=== PATIENT | female | born 1970 | race Caucasian/White ===

== ENCOUNTER 2017-08-28 18:43 | Inpatient (IN) | payer OTHER ==
[2017-08-28 23:52] LABS: ABNORMAL IP MESSAGE 1; HEMATOCRIT 21.4 % (37.0-47.0); MEAN CORPUSCULAR HGB CONC 25.7 g/dl (32.0-37.0); MEAN CORPUSCULAR VOLUME 62.4 fl (82.0-101.0); PLATELET COUNT 297 10^3/UL (140-415); RED BLOOD COUNT 3.43 10^6/ul (4.20-5.40); RED CELL DISTRIBUTION WIDTH 20.1 % (11.5-14.5)
[2017-08-28 23:52] LABS: WHITE BLOOD COUNT 10.7 10^3/ul (4.8-10.8)
[2017-08-28 23:58] LABS: ANION GAP 15 (8-16); BLOOD UREA NITROGEN 13 mg/dl (7-20); CALCIUM 8.3 mg/dl (8.4-10.2); CARBON DIOXIDE 24 mmol/L (21-31); CHLORIDE 107 mmol/L (97-110); CREATININE 0.59 mg/dl (0.44-1.00); GLUCOSE 176 mg/dl (70-220); POTASSIUM 4.5 mmol/L (3.5-5.1); SODIUM 141 mmol/L (135-144)
[2017-08-28 23:59] LABS: HEMOGLOBIN 5.5 g/dl (12.0-16.0); POSITIVE DIFF @See below
[2017-08-29] LABS: ADD MAN DIFF? YES
[2017-08-29 00:16] LABS: ADD UMIC YES; UR AMORPHOUS CRYSTAL FEW /HPF (NONE SEEN); UR ASCORBIC ACID NEGATIVE (NEGATIVE); UR BACTERIA FEW /HPF (NONE SEEN); UR BILIRUBIN (Dip) NEGATIVE (NEGATIVE); UR BLOOD (Dip) NEGATIVE (NEGATIVE); UR CLARITY TURBID (CLEAR); UR COLOR YELLOW (YELLOW); UR GLUCOSE (Dip) NEGATIVE (NEGATIVE); UR KETONES (Dip) NEGATIVE (NEGATIVE); UR LEUKOCYTE ESTERASE (Dip) 3+ Leu/ul (NEGATIVE); UR MUCUS FEW /HPF (NONE SEEN); UR NITRITE (Dip) POSITIVE (NEGATIVE); UR RBC 10 /HPF (0-5); UR SQUAMOUS EPITHELIAL CELL MODERATE /HPF (FEW); UR TOTAL PROTEIN (Dip) NEGATIVE (NEGATIVE); UR UROBILINOGEN (Dip) NEGATIVE (NEGATIVE); UR WBC 14 /HPF (0-5)
[2017-08-29 01:08] LABS: ANISOCYTOSIS 3+ (0-0); EOSINOPHILS % (M) 2 % (0-7); GIANT THROMBO% (M) 2 % (0-0); HYPOCHROMASIA 3+ (0-0); LYMPHOCYTES #M 2.5 10^3/ul (0.8-2.9); LYMPHOCYTES % (M) 24 % (15-51); MICROCYTOSIS 3+ (0-0); MONOCYTE #M 0.5 10^3/ul (0.3-0.9); MONOCYTES % (M) 5 % (0-11); PLATELET ESTIMATE NORMAL; POIKILOCYTOSIS 1+ (0-0); POLYCHROMASIA 3+ (0-0); SEGMENTED NEUTROPHILS (M) % 69 % (39-77)
[2017-08-29] MEDS: SOD CHLORIDE 0.9% 250 ML IV (01:09)
[2017-08-29] MEDS: CEFTRIAXONE 1 GM/50 ML (PMX) 50 ML IVPB ×2 (01:46→22:52)
[2017-08-29] MEDS ORDERED: ACETAMINOPHEN 325 MG TAB PO (04:00)
[2017-08-29] MEDS ORDERED: ONDANSETRON 4 MG INJ IV (04:00)
[2017-08-29] MEDS ORDERED: DOCUSATE SODIUM 100 MG CAP PO (04:00)
[2017-08-29] MEDS ORDERED: NACL 0.9% 3 ML SYG IV (04:00)
[2017-08-29] MEDS ORDERED: BISACODYL (EC) 5 MG TAB PO (04:00)
[2017-08-29 04:45] LABS: IRON 12 ug/dl (35-150)
[2017-08-29 04:54] LABS: % IRON SATURATION 3 % SAT (22-52); TOTAL IRON BINDING CAPACITY 477 ug/dl (241-421)
[2017-08-29] MEDS: morphine 2 MG INJ IV ×3 (05:03→23:51)
[2017-08-29 06:03] LABS: IMMEDIATE SPIN CROSSMATCH 1 2
[2017-08-29 07:07] LABS: INR 1.01; PARTIAL THROMBOPLASTIN TIME 25.8 Sec (25.0-35.0); PROTIME 13.4 Sec (11.9-14.9)
[2017-08-29] MEDS: PHENAZOPYRIDINE 200 MG TAB PO ×3 (10:27→22:19)
[2017-08-29 13:24] LABS: ADD MAN DIFF? NO
[2017-08-29 13:28] LABS: WHITE BLOOD COUNT 8.3 10^3/ul (4.8-10.8)
[2017-08-29 13:28] LABS: ABNORMAL IP MESSAGE 1; BASOPHILS % 0.4 % (0.0-2.0); EOSINOPHILS # 0.1 10^3/ul (0.0-0.5); EOSINOPHILS % 1.4 % (0.0-7.0); HEMATOCRIT 24.5 % (37.0-47.0); LYMPHOCYTES # 1.4 10^3/ul (0.8-2.9); LYMPHOCYTES % 16.8 % (15.0-51.0); MEAN CORPUSCULAR HEMOGLOBIN 17.9 pg (29.0-33.0); MEAN CORPUSCULAR HGB CONC 27.3 g/dl (32.0-37.0); MEAN CORPUSCULAR VOLUME 65.5 fl (82.0-101.0); MEAN PLATELET VOLUME 11.1 fl (7.4-10.4); MONOCYTE # 0.6 10^3/ul (0.3-0.9); MONOCYTES % 6.8 % (0.0-11.0); NEUTROPHIL # 6.2 10^3/ul (1.6-7.5); NEUTROPHILS % 74.4 % (39.0-77.0); NUCLEATED RED BLOOD CELLS% 0.2 /100WBC (0.0-0.0); PLATELET COUNT 274 10^3/UL (140-415); RED BLOOD COUNT 3.74 10^6/ul (4.20-5.40); RED CELL DISTRIBUTION WIDTH 23.4 % (11.5-14.5)
[2017-08-29 13:31] LABS: POSITIVE DIFF @See below
[2017-08-29 13:34] LABS: HEMOGLOBIN 6.7 g/dl (12.0-16.0)
[2017-08-29 13:46] LABS: ALANINE AMINOTRANSFERASE 75 IU/L (13-69); ALBUMIN 3.4 g/dl (3.3-4.9); ALBUMIN/GLOBULIN RATIO 1.09; ALKALINE PHOSPHATASE 127 IU/L (42-121); ANION GAP 14 (8-16); ASPARTATE AMINO TRANSFERASE 176 IU/L (15-46); BILIRUBIN,INDIRECT 0.8 mg/dl (0-1.1); BILIRUBIN,TOTAL 0.8 mg/dl (0.2-1.3); BLOOD UREA NITROGEN 9 mg/dl (7-20); CALCIUM 8.2 mg/dl (8.4-10.2); CARBON DIOXIDE 25 mmol/L (21-31); CHLORIDE 105 mmol/L (97-110); CHOL/HDL RATIO 2.1 RATIO; CHOLESTEROL 129 mg/dl (100-200); CREATININE 0.52 mg/dl (0.44-1.00); GLUCOSE 140 mg/dl (70-220); HDL CHOLESTEROL 61 mg/dl (37-92); LDL CHOLESTEROL,CALCULATED 53 mg/dl; MAGNESIUM 1.9 mg/dl (1.7-2.5); SODIUM 140 mmol/L (135-144); TOTAL PROTEIN 6.5 g/dl (6.1-8.1); TRIGLYCERIDES 73 mg/dl (0-149)
[2017-08-29 14:12] LABS: HEMOGLOBIN A1C 5.3 % (0-5.9)
[2017-08-29] MEDS ORDERED: HYDROCODONE/APAP (5/325) TAB PO (17:00)
[2017-08-29] MEDS: SOD CHLORIDE 0.9% 250 ML IV* (17:20)
[2017-08-29 17:21] LABS: RETICULOCYTE COUNT % 0.8 % (0.5-1.5)
[2017-08-29 17:23] LABS: RETICULOCYTE RBC 3.82
[2017-08-29] MEDS: [UNRECOGNIZED DRUG - OTHER] XX (18:00)
[2017-08-29] MEDS: DEXTROAMPHETAMINE SULFATE 30 MG XX (18:00)
[2017-08-29 19:39] LABS: ADD MAN DIFF? NO
[2017-08-29 19:41] LABS: WHITE BLOOD COUNT 10.1 10^3/ul (4.8-10.8)
[2017-08-29 19:41] LABS: ABNORMAL IP MESSAGE 1; BASOPHIL # 0.1 10^3/ul (0.0-0.1); BASOPHILS % 0.6 % (0.0-2.0); EOSINOPHILS # 0.2 10^3/ul (0.0-0.5); EOSINOPHILS % 2.4 % (0.0-7.0); HEMATOCRIT 27.5 % (37.0-47.0); HEMOGLOBIN 7.7 g/dl (12.0-16.0); LYMPHOCYTES # 1.6 10^3/ul (0.8-2.9); MEAN CORPUSCULAR HEMOGLOBIN 18.5 pg (29.0-33.0); MEAN CORPUSCULAR VOLUME 65.9 fl (82.0-101.0); MEAN PLATELET VOLUME 10.9 fl (7.4-10.4); MONOCYTE # 0.7 10^3/ul (0.3-0.9); MONOCYTES % 6.9 % (0.0-11.0); NEUTROPHIL # 7.4 10^3/ul (1.6-7.5); NEUTROPHILS % 73.7 % (39.0-77.0); PLATELET COUNT 267 10^3/UL (140-415); RED BLOOD COUNT 4.17 10^6/ul (4.20-5.40); RED CELL DISTRIBUTION WIDTH 23.7 % (11.5-14.5)
[2017-08-29 19:49] LABS: POSITIVE DIFF @See below
[2017-08-29] MEDS: MICONAZOLE 200 MG VAG SUPP VAG (21:00)
[2017-08-29] MEDS: FERROUS SULFATE (EC) 325 MG TAB PO (22:19)
[2017-08-29] MEDS: ZOLPIDEM 5 MG TAB PO (22:51)
[2017-08-29] MEDS ORDERED: VANCOMYCIN IV PER PHARMACY XX (23:00)
[2017-08-29] MEDS: VANCOMYCIN 1.25 GM in SOD CHLORIDE 0.9% 250 ML IVPB (23:40)
[2017-08-30] MEDS: [UNRECOGNIZED DRUG - OTHER] XX ×2 (01:41→10:00)
[2017-08-30] MEDS: DEXTROAMPHETAMINE SULFATE 30 MG XX ×2 (01:41→10:00)
[2017-08-30] MEDS ORDERED: CEFTRIAXONE 1 GM/50 ML (PMX) 50 ML IVPB (02:00)
[2017-08-30 05:17] LABS: ADD MAN DIFF? NO
[2017-08-30 05:20] LABS: ABNORMAL IP MESSAGE 1; BASOPHIL # 0.1 10^3/ul (0.0-0.1); BASOPHILS % 0.5 % (0.0-2.0); EOSINOPHILS # 0.1 10^3/ul (0.0-0.5); EOSINOPHILS % 1.2 % (0.0-7.0); HEMATOCRIT 24.3 % (37.0-47.0); LYMPHOCYTES # 1.1 10^3/ul (0.8-2.9); LYMPHOCYTES % 11.7 % (15.0-51.0); MEAN CORPUSCULAR HEMOGLOBIN 18.1 pg (29.0-33.0); MEAN CORPUSCULAR VOLUME 64.8 fl (82.0-101.0); MEAN PLATELET VOLUME 11.1 fl (7.4-10.4); MONOCYTE # 0.7 10^3/ul (0.3-0.9); MONOCYTES % 7.1 % (0.0-11.0); NEUTROPHIL # 7.5 10^3/ul (1.6-7.5); NUCLEATED RED BLOOD CELLS% 0.2 /100WBC (0.0-0.0); PLATELET COUNT 258 10^3/UL (140-415); RED BLOOD COUNT 3.75 10^6/ul (4.20-5.40); RED CELL DISTRIBUTION WIDTH 23.9 % (11.5-14.5)
[2017-08-30 05:20] LABS: WHITE BLOOD COUNT 9.5 10^3/ul (4.8-10.8)
[2017-08-30 05:27] LABS: HEMOGLOBIN 6.8 g/dl (12.0-16.0); POSITIVE DIFF @See below
[2017-08-30 05:38] LABS: INR 1.04; PROTIME 13.7 Sec (11.9-14.9); PT RATIO 1.1
[2017-08-30 05:39] LABS: PARTIAL THROMBOPLASTIN TIME 25.5 Sec (25.0-35.0)
[2017-08-30 05:56] LABS: ALANINE AMINOTRANSFERASE 143 IU/L (13-69); ALBUMIN 3.3 g/dl (3.3-4.9); ALBUMIN/GLOBULIN RATIO 1.03; ALKALINE PHOSPHATASE 190 IU/L (42-121); ANION GAP 11 (8-16); ASPARTATE AMINO TRANSFERASE 360 IU/L (15-46); BILIRUBIN,INDIRECT 0.2 mg/dl (0-1.1); BILIRUBIN,TOTAL 0.2 mg/dl (0.2-1.3); BLOOD UREA NITROGEN 9 mg/dl (7-20); CALCIUM 8.4 mg/dl (8.4-10.2); CARBON DIOXIDE 26 mmol/L (21-31); CHLORIDE 107 mmol/L (97-110); CREATININE 0.51 mg/dl (0.44-1.00); GLUCOSE 103 mg/dl (70-220); MAGNESIUM 1.9 mg/dl (1.7-2.5); PHOSPHORUS 2.7 mg/dl (2.5-4.9); POTASSIUM 4.2 mmol/L (3.5-5.1); SODIUM 140 mmol/L (135-144); TOTAL PROTEIN 6.5 g/dl (6.1-8.1)
[2017-08-30] MEDS: PHENAZOPYRIDINE 200 MG TAB PO ×2 (09:00→15:14)
[2017-08-30] MEDS: FERROUS SULFATE (EC) 325 MG TAB PO ×2 (09:00→13:00)
[2017-08-30] MEDS ORDERED: DEXTROAMPHETAMINE SULFATE 30 MG PO (09:00)
[2017-08-30] MEDS ORDERED: SOD FERRIC GLUC COMPLX 125 MG in SOD CHLORIDE 0.9% 100 ML IVPB (17:00)
[2017-08-30] MEDS ORDERED: LIDOCAINE 2% JELLY 5 ML TOP (21:00)
[2017-08-30] MEDS ORDERED: LIDOCAINE 2% JELLY 30 ML TOP (21:00)
[2017-09-02 20:41] LABS: VITAMIN B1 (THIAMINE) 114 nmol/L (78-185)
== END 2017-08-30 17:25 | disposition left against medical advice (07) | DRG 812 ==
LOC: E/R 18:43 → MS1 08-29 03:54
PROC: 0DB68ZX Excision of Stomach, Via Natural or Artificial Opening Endoscopic, Diagnostic (ICD-10-PCS; principal; 2017-08-30 12:24)
PROC: 30233N1 Transfusion of Nonautologous Red Blood Cells into Peripheral Vein, Percutaneous Approach (ICD-10-PCS; 2017-08-30 12:24)
DX: D50.9 Iron deficiency anemia, unspecified (principal); N30.01 Acute cystitis with hematuria; K28.9 Gastrojejunal ulcer, unspecified as acute or chronic, without hemorrhage or perforation; K92.1 Melena; Z98.84 Bariatric surgery status; D64.9 Anemia, unspecified; R51 Headache; R20.8 Other disturbances of skin sensation; K13.70 Unspecified lesions of oral mucosa
CPT/HCPCS: 36430; 80048; 80053; 80061; 81001; 82306; 82607; 83036; 83540; 83735; 84100; 84425; 84443; 84590; 85025; 85045; 85610; 85730; 86850; 86870; 86900; 86901; 86902; 86920; 87040; 87086; 88305; 88312; 88313; 96374; 96375; 99285-25

== ENCOUNTER 2017-08-30 20:18 | Inpatient (IN) | payer OTHER ==
[2017-08-31 10:11] LABS: ADD MAN DIFF? NO
[2017-08-31 10:14] LABS: WHITE BLOOD COUNT 8.8 10^3/ul (4.8-10.8)
[2017-08-31 10:14] LABS: ABNORMAL IP MESSAGE 1; BASOPHIL # 0.1 10^3/ul (0.0-0.1); BASOPHILS % 0.6 % (0.0-2.0); EOSINOPHILS # 0.2 10^3/ul (0.0-0.5); EOSINOPHILS % 2.7 % (0.0-7.0); HEMOGLOBIN 8.4 g/dl (12.0-16.0); LYMPHOCYTES # 1.7 10^3/ul (0.8-2.9); LYMPHOCYTES % 19.3 % (15.0-51.0); MEAN CORPUSCULAR HEMOGLOBIN 19.4 pg (29.0-33.0); MEAN CORPUSCULAR VOLUME 66.8 fl (82.0-101.0); MONOCYTE # 0.7 10^3/ul (0.3-0.9); NEUTROPHIL # 6.1 10^3/ul (1.6-7.5); NEUTROPHILS % 68.8 % (39.0-77.0); PLATELET COUNT 269 10^3/UL (140-415); RED BLOOD COUNT 4.34 10^6/ul (4.20-5.40)
[2017-08-31 10:16] LABS: POSITIVE DIFF @See below
[2017-08-31 10:33] LABS: ALANINE AMINOTRANSFERASE 109 IU/L (13-69); ALBUMIN 3.8 g/dl (3.3-4.9); ALBUMIN/GLOBULIN RATIO 1.15; ALKALINE PHOSPHATASE 176 IU/L (42-121); ANION GAP 12 (8-16); ASPARTATE AMINO TRANSFERASE 114 IU/L (15-46); BILIRUBIN,INDIRECT 0.2 mg/dl (0-1.1); BILIRUBIN,TOTAL 0.2 mg/dl (0.2-1.3); BLOOD UREA NITROGEN 13 mg/dl (7-20); CALCIUM 8.6 mg/dl (8.4-10.2); CARBON DIOXIDE 29 mmol/L (21-31); CHLORIDE 107 mmol/L (97-110); CREATININE 0.54 mg/dl (0.44-1.00); GLUCOSE 88 mg/dl (70-220); POTASSIUM 3.9 mmol/L (3.5-5.1); SODIUM 144 mmol/L (135-144); TOTAL PROTEIN 7.1 g/dl (6.1-8.1)
[2017-08-31 10:47] LABS: INR 1.05; PROTIME 13.8 Sec (11.9-14.9); PT RATIO 1.1
[2017-08-31 10:48] LABS: PARTIAL THROMBOPLASTIN TIME 22.7 Sec (25.0-35.0); TROPONIN-I < 0.012 ng/ml (0.00-0.12)
[2017-08-31] MEDS ORDERED: ONDANSETRON 4 MG INJ IV ×2 (12:00→12:30)
[2017-08-31] MEDS ORDERED: ACETAMINOPHEN 325 MG TAB PO (12:00)
[2017-08-31] MEDS ORDERED: MAGNESIUM HYDROXIDE 30ML CUP PO (12:30)
[2017-08-31] MEDS ORDERED: VANCOMYCIN IV PER PHARMACY XX (12:30)
[2017-08-31] MEDS ORDERED: ZOLPIDEM 5 MG TAB PO (12:30)
[2017-08-31] MEDS: DOCUSATE SODIUM 100 MG CAP PO ×2 (12:30→20:12)
[2017-08-31] MEDS: SUCRALFATE 1 GM TAB PO ×3 (13:00→20:12)
[2017-08-31] MEDS: PANTOPRAZOLE (EC) 40 MG TAB PO ×2 (13:00→19:51)
[2017-08-31] MEDS: CEFTRIAXONE 1 GM/50 ML (PMX) 50 ML IVPB (13:00)
[2017-08-31] MEDS: ACETAMINOPHEN 325 MG TAB PO (13:52)
[2017-08-31] MEDS: VANCOMYCIN 1.75 GM in D5W 500 ML IVPB (15:48)
[2017-08-31] MEDS: HYDROCODONE/APAP (5/325) TAB PO (16:07)
[2017-08-31 20:13] LABS: BARBITURATES Negative (NEGATIVE); BENZODIAZEPINES Negative (NEGATIVE); CANNABINOIDS Negative (NEGATIVE); COCAINE Negative (NEGATIVE); OPIATES Negative (NEGATIVE)
[2017-08-31 20:19] LABS: AMPHETAMINE/METHAMPHETAMINE Negative (NEGATIVE)
[2017-08-31] MEDS: ALPRAZOLAM 0.25 MG TAB PO (22:19)
[2017-08-31] MEDS: VANCOMYCIN 1.25 GM in SOD CHLORIDE 0.9% 250 ML IVPB (23:37)
[2017-09-01] MEDS: PANTOPRAZOLE (EC) 40 MG TAB PO ×2 (05:54→17:08)
[2017-09-01 06:58] LABS: ADD MAN DIFF? NO
[2017-09-01 07:05] LABS: WHITE BLOOD COUNT 8.6 10^3/ul (4.8-10.8)
[2017-09-01 07:05] LABS: ABNORMAL IP MESSAGE 1; BASOPHIL # 0.1 10^3/ul (0.0-0.1); BASOPHILS % 0.7 % (0.0-2.0); EOSINOPHILS # 0.3 10^3/ul (0.0-0.5); EOSINOPHILS % 3.6 % (0.0-7.0); HEMATOCRIT 27.5 % (37.0-47.0); HEMOGLOBIN 7.8 g/dl (12.0-16.0); LYMPHOCYTES % 23.5 % (15.0-51.0); MEAN CORPUSCULAR HEMOGLOBIN 19.1 pg (29.0-33.0); MEAN CORPUSCULAR HGB CONC 28.4 g/dl (32.0-37.0); MEAN CORPUSCULAR VOLUME 67.2 fl (82.0-101.0); MEAN PLATELET VOLUME 11.1 fl (7.4-10.4); MONOCYTE # 0.6 10^3/ul (0.3-0.9); NEUTROPHIL # 5.5 10^3/ul (1.6-7.5); NEUTROPHILS % 64.7 % (39.0-77.0); PLATELET COUNT 267 10^3/UL (140-415); RED BLOOD COUNT 4.09 10^6/ul (4.20-5.40); RED CELL DISTRIBUTION WIDTH 26.4 % (11.5-14.5)
[2017-09-01 07:21] LABS: POSITIVE DIFF @See below
[2017-09-01 07:33] LABS: ALANINE AMINOTRANSFERASE 73 IU/L (13-69); ALBUMIN 3.3 g/dl (3.3-4.9); ALBUMIN/GLOBULIN RATIO 1.06; ALKALINE PHOSPHATASE 138 IU/L (42-121); ANION GAP 14 (8-16); ASPARTATE AMINO TRANSFERASE 57 IU/L (15-46); BILIRUBIN,INDIRECT 0.1 mg/dl (0-1.1); BILIRUBIN,TOTAL 0.1 mg/dl (0.2-1.3); BLOOD UREA NITROGEN 12 mg/dl (7-20); CALCIUM 8.2 mg/dl (8.4-10.2); CARBON DIOXIDE 25 mmol/L (21-31); CHLORIDE 109 mmol/L (97-110); CREATININE 0.54 mg/dl (0.44-1.00); GLUCOSE 76 mg/dl (70-220); PHOSPHORUS 2.8 mg/dl (2.5-4.9); POTASSIUM 3.9 mmol/L (3.5-5.1); SODIUM 144 mmol/L (135-144); TOTAL PROTEIN 6.4 g/dl (6.1-8.1)
[2017-09-01] MEDS: VANCOMYCIN 1.25 GM in SOD CHLORIDE 0.9% 250 ML IVPB ×2 (09:03→17:08)
[2017-09-01] MEDS: SUCRALFATE 1 GM TAB PO ×4 (09:03→20:36)
[2017-09-01] MEDS: DOCUSATE SODIUM 100 MG CAP PO ×2 (09:03→20:36)
[2017-09-01] MEDS: CEFTRIAXONE 1 GM/50 ML (PMX) 50 ML IVPB ×2 (13:00→16:20)
[2017-09-01 16:06] LABS: VANCOMYCIN,TROUGH 15.8 ug/ml (10.0-20.0)
[2017-09-01] MEDS: ALPRAZOLAM 0.25 MG TAB PO (18:54)
[2017-09-01] MEDS: NYSTATIN 15 GM OINT TOP (20:36)
[2017-09-01] MEDS: FERROUS FUMARATE (SR) TAB PO (20:36)
[2017-09-02] MEDS: VANCOMYCIN 1 GM 250 ML IVPB ×2 (00:14→08:56)
[2017-09-02] MEDS: KETOROLAC 30 MG INJ IV (00:14)
[2017-09-02 05:58] LABS: ADD MAN DIFF? NO
[2017-09-02 06:05] LABS: WHITE BLOOD COUNT 8.2 10^3/ul (4.8-10.8)
[2017-09-02 06:05] LABS: ABNORMAL IP MESSAGE 1; BASOPHIL # 0.1 10^3/ul (0.0-0.1); BASOPHILS % 0.9 % (0.0-2.0); EOSINOPHILS # 0.4 10^3/ul (0.0-0.5); EOSINOPHILS % 5.1 % (0.0-7.0); HEMATOCRIT 25.5 % (37.0-47.0); HEMOGLOBIN 7.4 g/dl (12.0-16.0); LYMPHOCYTES # 2.5 10^3/ul (0.8-2.9); LYMPHOCYTES % 30.5 % (15.0-51.0); MEAN CORPUSCULAR HEMOGLOBIN 19.8 pg (29.0-33.0); MEAN CORPUSCULAR VOLUME 68.2 fl (82.0-101.0); MEAN PLATELET VOLUME 10.9 fl (7.4-10.4); MONOCYTE # 0.7 10^3/ul (0.3-0.9); MONOCYTES % 8.3 % (0.0-11.0); NEUTROPHIL # 4.5 10^3/ul (1.6-7.5); NEUTROPHILS % 54.6 % (39.0-77.0); PLATELET COUNT 246 10^3/UL (140-415); RED BLOOD COUNT 3.74 10^6/ul (4.20-5.40); RED CELL DISTRIBUTION WIDTH 26.8 % (11.5-14.5)
[2017-09-02 06:19] LABS: POSITIVE DIFF @See below
[2017-09-02 06:31] LABS: ANION GAP 14 (8-16); BLOOD UREA NITROGEN 15 mg/dl (7-20); CALCIUM 7.9 mg/dl (8.4-10.2); CARBON DIOXIDE 24 mmol/L (21-31); CHLORIDE 109 mmol/L (97-110); GLUCOSE 76 mg/dl (70-220); SODIUM 143 mmol/L (135-144)
[2017-09-02] MEDS: SUCRALFATE 1 GM TAB PO ×4 (08:53→20:36)
[2017-09-02] MEDS: PANTOPRAZOLE (EC) 40 MG TAB PO ×2 (08:53→17:24)
[2017-09-02] MEDS: NYSTATIN 15 GM OINT TOP ×2 (08:56→20:37)
[2017-09-02] MEDS: DOCUSATE SODIUM 100 MG CAP PO ×2 (08:57→20:36)
[2017-09-02] MEDS: FERROUS FUMARATE (SR) TAB PO ×2 (08:57→20:37)
[2017-09-02] MEDS: CEFTRIAXONE 1 GM/50 ML (PMX) 50 ML IVPB (13:04)
[2017-09-02] MEDS ORDERED: NEUTRA-PHOS 250 MG PACKET PO (16:00)
[2017-09-02 16:19] LABS: HEMATOCRIT 30.1 % (37.0-47.0); HEMOGLOBIN 8.4 g/dl (12.0-16.0)
[2017-09-02] MEDS: CALCIUM CARBONATE 1.25 GM TAB PO (17:24)
[2017-09-02] MEDS: ALPRAZOLAM 0.25 MG TAB PO (20:36)
[2017-09-03 06:15] LABS: ADD MAN DIFF? NO
[2017-09-03 06:20] LABS: WHITE BLOOD COUNT 8.1 10^3/ul (4.8-10.8)
[2017-09-03 06:20] LABS: ABNORMAL IP MESSAGE 1; BASOPHILS % 0.5 % (0.0-2.0); EOSINOPHILS # 0.3 10^3/ul (0.0-0.5); EOSINOPHILS % 3.7 % (0.0-7.0); HEMATOCRIT 25.7 % (37.0-47.0); HEMOGLOBIN 7.2 g/dl (12.0-16.0); LYMPHOCYTES # 2.2 10^3/ul (0.8-2.9); LYMPHOCYTES % 26.8 % (15.0-51.0); MEAN CORPUSCULAR HEMOGLOBIN 19.1 pg (29.0-33.0); MEAN CORPUSCULAR VOLUME 68.2 fl (82.0-101.0); MEAN PLATELET VOLUME 10.8 fl (7.4-10.4); MONOCYTE # 0.6 10^3/ul (0.3-0.9); MONOCYTES % 6.8 % (0.0-11.0); NEUTROPHILS % 61.7 % (39.0-77.0); PLATELET COUNT 243 10^3/UL (140-415); RED BLOOD COUNT 3.77 10^6/ul (4.20-5.40)
[2017-09-03 06:26] LABS: POSITIVE DIFF @See below
[2017-09-03] MEDS: PANTOPRAZOLE (EC) 40 MG TAB PO (06:39)
[2017-09-03 06:41] LABS: ANION GAP 14 (8-16); BLOOD UREA NITROGEN 14 mg/dl (7-20); CALCIUM 7.9 mg/dl (8.4-10.2); CARBON DIOXIDE 27 mmol/L (21-31); CHLORIDE 108 mmol/L (97-110); CREATININE 0.55 mg/dl (0.44-1.00); GLUCOSE 70 mg/dl (70-220); SODIUM 145 mmol/L (135-144)
[2017-09-03] MEDS: SUCRALFATE 1 GM TAB PO ×2 (09:18→12:49)
[2017-09-03] MEDS: FERROUS FUMARATE (SR) TAB PO (09:18)
[2017-09-03] MEDS: DOCUSATE SODIUM 100 MG CAP PO (09:18)
[2017-09-03] MEDS: NYSTATIN 15 GM OINT TOP (09:19)
[2017-09-03] MEDS: CEFTRIAXONE 1 GM/50 ML (PMX) 50 ML IVPB (11:08)
== END 2017-09-03 12:50 | disposition home health service (06) | DRG 812 ==
LOC: E/R 20:18 → MS2 09-02 20:20
PROVIDERS: Family Medicine
DX: D50.9 Iron deficiency anemia, unspecified (principal); R78.81 Bacteremia; K28.9 Gastrojejunal ulcer, unspecified as acute or chronic, without hemorrhage or perforation; N39.0 Urinary tract infection, site not specified; R74.0 Nonspecific elevation of levels of transaminase and lactic acid dehydrogenase [LDH]; F17.210 Nicotine dependence, cigarettes, uncomplicated; F41.9 Anxiety disorder, unspecified; F90.9 Attention-deficit hyperactivity disorder, unspecified type; B96.1 Klebsiella pneumoniae [K. pneumoniae] as the cause of diseases classified elsewhere; Z98.84 Bariatric surgery status
CPT/HCPCS: 36415; 80048; 80053; 80202; 80307; 83735; 84100; 84484; 85014; 85018; 85025; 85610; 85730; 87040; 93005; 93306; 96374; 96375; 99285-25

== ENCOUNTER 2017-09-25 19:47 | Emergency (ER) | payer OTHER ==
[2017-09-25 20:56] LABS: URINE BLOOD (Dip) POC Negative (NEGATIVE); URINE GLUCOSE (Dip) POC Negative (NEGATIVE); URINE KETONES (Dip) POC 1+ (NEGATIVE); URINE LEUKOCYTE EST (Dip) POC Negative (NEGATIVE); URINE NITRITE (Dip) POC Negative (NEGATIVE); URINE TOTAL PROTEIN POC Trace (NEGATIVE)
[2017-09-25 20:56] LABS: URINE PH (Dip) POC 5.5 (5.0-8.5)
== END 2017-09-25 21:39 | disposition home or self-care (01) ==
LOC: FTE 19:47
DX: Z86.19 Personal history of other infectious and parasitic diseases (principal)
CPT/HCPCS: 81003; 81025; 87040; 99282